=== PATIENT | female | born 1990 | race Caucasian/White ===

== ENCOUNTER 2016-09-28 17:06 | Emergency (ER) | payer OTHER ==
[2016-09-28 18:33] LABS: HEMOGLOBIN 11.1 gm/dl (12.3-15.3); RED BLOOD COUNT 3.49 M/UL (4.00-5.10); WHITE BLOOD COUNT 11.7 K/UL (4.5-11.0)
[2016-09-30] MEDS ORDERED: PROGRAF1 MG PO (07:14)
[2016-09-30] MEDS ORDERED: COMPAZINE10 MG PO (07:15)
[2016-09-30] MEDS ORDERED: NYSTATIN100000 UNI PO (07:15)
[2016-09-30] MEDS ORDERED: BENADRYL 25MG C25 MG PO (07:16)
[2016-09-30] MEDS ORDERED: ASPIR 8181 MG PO (07:17)
[2016-09-30] MEDS ORDERED: PREDNISONE10 MG PO (07:17)
[2016-09-30] MEDS ORDERED: CELEXA10 MG PO (07:18)
[2016-09-30] MEDS ORDERED: WARFARIN SODIU7.5 MG PO (07:18)
[2016-09-30] MEDS ORDERED: PROTONIX 40 MG40 M1 PO (07:19)
[2016-09-30] MEDS ORDERED: COQ-10100 MG PO (07:19)
[2016-09-30] MEDS ORDERED: PHENERGAN 25 MG25 M1 PO (07:20)
[2016-09-30] MEDS ORDERED: NORCO 10-325 T1 EACH PO (10:39)
[2016-12-24] MEDS ORDERED: CELEXA10 MG PO (09:39)
[2016-12-24] MEDS ORDERED: PHENERGAN 25 MG25 M1 PO (09:40)
[2016-12-24] MEDS ORDERED: NORCO 7.5-3251 EACH PO (13:01)
[2017-01-05] MEDS ORDERED: MAGNESIUM/PROTEIN PO (07:52)
[2017-01-05] MEDS ORDERED: COQ-10100 MG PO (07:53)
[2017-01-05] MEDS ORDERED: PROTONIX40 MG PO (07:53)
[2017-01-05] MEDS ORDERED: PREDNISONE10 MG PO (07:54)
[2017-01-05] MEDS ORDERED: WARFARIN SODIUM3 MG PO (07:55)
[2017-01-05] MEDS ORDERED: MYCOSTATIN CREA15 GM EXT (07:56)
[2017-01-05] MEDS ORDERED: TACROLIMUS1 MG PO (07:56)
[2017-01-05] MEDS ORDERED: MULTI-DAY VITA1 EACH PO (07:57)
[2017-01-05] MEDS ORDERED: NORCO 7.5-3251 EACH PO (11:25)
== END 2016-09-28 19:23 | disposition home or self-care (01) ==
LOC: ER1 17:06
PROVIDERS: Emergency Medicine
DX: S61.012A Laceration without foreign body of left thumb without damage to nail, initial encounter (principal); S56.322A Laceration of extensor or abductor muscles, fascia and tendons of left thumb at forearm level, initial encounter; Z86.718 Personal history of other venous thrombosis and embolism; Z79.01 Long term (current) use of anticoagulants; W45.8XXA Other foreign body or object entering through skin, initial encounter; Y93.89 Activity, other specified; Y92.009 Unspecified place in unspecified non-institutional (private) residence as the place of occurrence of the external cause; Z91.041 Radiographic dye allergy status; Z23 Encounter for immunization
CPT/HCPCS: 12001; 36415; 73140; 85025; 85610; 90715; 99283

== ENCOUNTER → 2016-09-30 | Day surgery (SDC) | payer OTHER ==
[~2016-09-30] VITALS: Ht 157.5 cm; Wt 56.7 kg
[~2016-09-30] MED LIST: ASPIR 8181 MG PO; BENADRYL 25MG C25 MG PO; CELEXA10 MG PO; COMPAZINE10 MG PO; COQ-10100 MG PO; MAGNESIUM/PROTEIN PO; MULTI-DAY VITA1 EACH PO; MYCOSTATIN CREA15 GM EXT; NORCO 10-325 T1 EACH PO; NORCO 7.5-3251 EACH PO; NYSTATIN100000 UNI PO; PHENERGAN 25 MG25 M1 PO; PREDNISONE10 MG PO; PROGRAF1 MG PO; PROTONIX 40 MG40 M1 PO; PROTONIX40 MG PO; TACROLIMUS1 MG PO; WARFARIN SODIU7.5 MG PO; WARFARIN SODIUM3 MG PO
== END | disposition home or self-care (01) ==
LOC: OR 06:02
PROVIDERS: Orthopaedic Surgery
PROC: 0LQ80ZZ Repair Left Hand Tendon, Open Approach (ICD-10-PCS; principal; 2016-09-30 08:15)
DX: S66.212A Strain of extensor muscle, fascia and tendon of left thumb at wrist and hand level, initial encounter (principal); K21.9 Gastro-esophageal reflux disease without esophagitis; Z91.041 Radiographic dye allergy status; Z88.8 Allergy status to other drugs, medicaments and biological substances; Z79.899 Other long term (current) drug therapy; Z79.82 Long term (current) use of aspirin; Z87.19 Personal history of other diseases of the digestive system; W34.00XA Accidental discharge from unspecified firearms or gun, initial encounter; Z90.49 Acquired absence of other specified parts of digestive tract
CPT/HCPCS: 84703; J0690; J2250; J2405; J2550; J3010; J3370; J7030; J7050; J7070; J7120

== ENCOUNTER 2016-11-04 11:26 | Emergency (ER) | payer OTHER ==
[~2016-11-04 11:26] MED LIST changes: -MAGNESIUM/PROTEIN PO; -MULTI-DAY VITA1 EACH PO; -MYCOSTATIN CREA15 GM EXT; -NORCO 7.5-3251 EACH PO; -PROTONIX40 MG PO; -TACROLIMUS1 MG PO; -WARFARIN SODIUM3 MG PO
[2016-11-04 13:36] LABS: HEMOGLOBIN 12.1 gm/dl (12.3-15.3); RED BLOOD COUNT 3.89 M/UL (4.00-5.10); WHITE BLOOD COUNT 12.9 K/UL (4.5-11.0)
[2016-11-04 13:56] LABS: BUN/CREATININE RATIO 25 (0-10)
[2016-12-24] MEDS ORDERED: CELEXA10 MG PO (09:39)
[2016-12-24] MEDS ORDERED: PHENERGAN 25 MG25 M1 PO (09:40)
[2016-12-24] MEDS ORDERED: NORCO 7.5-3251 EACH PO (13:01)
[2017-01-05] MEDS ORDERED: MAGNESIUM/PROTEIN PO (07:52)
[2017-01-05] MEDS ORDERED: PROTONIX40 MG PO (07:53)
[2017-01-05] MEDS ORDERED: COQ-10100 MG PO (07:53)
[2017-01-05] MEDS ORDERED: PREDNISONE10 MG PO (07:54)
[2017-01-05] MEDS ORDERED: WARFARIN SODIUM3 MG PO (07:55)
[2017-01-05] MEDS ORDERED: MYCOSTATIN CREA15 GM EXT (07:56)
[2017-01-05] MEDS ORDERED: TACROLIMUS1 MG PO (07:56)
[2017-01-05] MEDS ORDERED: MULTI-DAY VITA1 EACH PO (07:57)
[2017-01-05] MEDS ORDERED: NORCO 7.5-3251 EACH PO (11:25)
== END 2016-11-04 15:55 | disposition home or self-care (01) ==
LOC: ER1 11:26
PROVIDERS: Physician Assistant
DX: N20.1 Calculus of ureter (principal); N39.0 Urinary tract infection, site not specified; K21.9 Gastro-esophageal reflux disease without esophagitis; Z91.041 Radiographic dye allergy status; Z79.01 Long term (current) use of anticoagulants; Z79.82 Long term (current) use of aspirin; Z79.899 Other long term (current) drug therapy
CPT/HCPCS: 36415; 80053; 81001; 84703; 85025; 87086; 96374; 96375; 99284; J0696; J1885; J2270; J2405; J2550; J7030; J7050

== ENCOUNTER → 2020-07-06 | Outpatient (CLI) | payer OTHER ==
[~2020-07-06] MED LIST changes: +CEFUROXIME250 MG PO; +DOXYCYCLINE HY100 MG PO; +GENTAMICIN; +LEVAQUIN500 MG PO; +MAGNESIUM400 MG PO; +MULTI-DAY VITA1 EACH PO; +MYCOSTATIN100000 UTS PO; +NORCO 7.5-3251 EACH PO; +OMNICEF 300 MG300 MG PO; +ONDANSETRON ODT4 MG SL; +PERCOCET 5/325 T1 EA PO; +PHENERGAN 12.12.5 M1 PO; +PREDNISONE5 MG PO; +PROTONIX 20 MG20 MG PO; +PROTONIX40 MG PO; +TACROLIMUS1 MG PO; +VITAMIN D31000 UNI1 PO; +WARFARIN SODIUM3 MG PO
== END ==
LOC: KOH-I 14:00
DX: N17.9 Acute kidney failure, unspecified (principal); N28.89 Other specified disorders of kidney and ureter
CPT/HCPCS: 76775

== ENCOUNTER 2020-08-28 17:01 | Emergency (ER) | payer OTHER ==
[~2020-08-28 17:01] MED LIST changes: -DOXYCYCLINE HY100 MG PO; -ONDANSETRON ODT4 MG SL
[2020-08-28 18:49] LABS: HEMOGLOBIN 11.3 gm/dl (12.3-15.3); RED BLOOD COUNT 3.63 M/UL (4.00-5.10)
[2020-08-28 19:07] LABS: WHITE BLOOD COUNT 18.4 K/UL (4.5-11.0)
[2020-08-28] MEDS ORDERED: PERCOCET 5/325 T1 EA PO (21:40)
[2020-08-28] MEDS ORDERED: DOXYCYCLINE HY100 MG PO (21:43)
[2020-08-28] MEDS ORDERED: ONDANSETRON ODT4 MG SL (21:43)
== END 2020-08-28 22:04 | disposition home or self-care (01) ==
LOC: ER1 17:01
PROVIDERS: Physician Assistant
DX: N12 Tubulo-interstitial nephritis, not specified as acute or chronic (principal); E87.6 Hypokalemia; Z79.01 Long term (current) use of anticoagulants; Z79.899 Other long term (current) drug therapy; Z91.041 Radiographic dye allergy status
CPT/HCPCS: 80053; 81001; 83605; 83690; 84703; 85025; 87040; 87077; 87086; 87186; 96374; 96375; 96376; 99284; J0696; J2270; J2405

== ENCOUNTER → 2020-10-22 | Outpatient (CLI) | payer OTHER ==
[~2020-10-22] MED LIST changes: +DOXYCYCLINE HY100 MG PO; +ONDANSETRON ODT4 MG SL
[2020-10-22 16:00] LABS: HEMOGLOBIN 13.1 gm/dl (12.3-15.3); RED BLOOD COUNT 4.19 M/UL (4.00-5.10); WHITE BLOOD COUNT 12.1 K/UL (4.5-11.0)
[2020-10-22 16:17] LABS: BUN/CREATININE RATIO 17 (0-10); GAMMA GLUTAMYL TRANSPEPTIDASE 22 U/L (7-64)
[2020-10-23 14:11] LABS: TACROLIMUS BY IMMUNOASSAY 16.1 ng/mL (2.0-20.0)
== END ==
LOC: PHH 14:17
DX: Z48.298 Encounter for aftercare following other organ transplant (principal); Z94.82 Intestine transplant status
CPT/HCPCS: 80053; 80061; 80197; 82150; 82248; 82977; 83690; 83735; 84100; 84134; 85025

== ENCOUNTER → 2020-10-29 | Outpatient (CLI) | payer OTHER ==
[2020-10-29 14:10] LABS: HEMOGLOBIN 12.3 gm/dl (12.3-15.3); RED BLOOD COUNT 3.93 M/UL (4.00-5.10); WHITE BLOOD COUNT 15.6 K/UL (4.5-11.0)
[2020-10-31 11:12] LABS: TACROLIMUS BY IMMUNOASSAY 12.2 ng/mL (2.0-20.0)
== END ==
LOC: LBRF 13:42
DX: Z94.82 Intestine transplant status (principal)
CPT/HCPCS: 80053; 80061; 80197; 82150; 82248; 82977; 83690; 83735; 84100; 84134; 85025

== ENCOUNTER → 2021-03-04 | Outpatient (CLI) | payer OTHER ==
[2021-03-04 15:30] LABS: HEMOGLOBIN 11.3 gm/dl (12.3-15.3); RED BLOOD COUNT 3.73 M/UL (4.00-5.10); WHITE BLOOD COUNT 13.1 K/UL (4.5-11.0)
[2021-03-04 15:42] LABS: BUN/CREATININE RATIO 16 (0-10); GAMMA GLUTAMYL TRANSPEPTIDASE 46 U/L (7-64)
[2021-03-05 12:14] LABS: TACROLIMUS BY IMMUNOASSAY 15.9 ng/mL (2.0-20.0)
== END ==
LOC: LBRF 14:06
DX: K91.2 Postsurgical malabsorption, not elsewhere classified (principal)
CPT/HCPCS: 80053; 80061; 80197; 82150; 82248; 82977; 83690; 84134; 85025

== ENCOUNTER → 2021-04-08 | Outpatient (CLI) | payer OTHER ==
[2021-04-10 14:14] LABS: TACROLIMUS BY IMMUNOASSAY 11.4 ng/mL (2.0-20.0)
== END ==
LOC: PHH 17:20
DX: Z94.82 Intestine transplant status (principal)
CPT/HCPCS: 80197; 84134

== ENCOUNTER 2021-05-06 02:02 | Inpatient (IN) | payer OTHER ==
[~2021-05-06] VITALS: Ht 157.5 cm; Wt 44.0 kg
[~2021-05-06 02:02] MED LIST changes: -PREDNISONE5 MG PO; -VITAMIN D31000 UNI1 PO
[2021-05-06 02:35] LABS: HEMOGLOBIN 11.7 gm/dl (12.3-15.3); RED BLOOD COUNT 3.91 M/UL (4.00-5.10); WHITE BLOOD COUNT 22.7 K/UL (4.5-11.0)
[2021-05-06] MEDS ORDERED: COQ-10100 MG PO (07:53)
[2021-05-06] MEDS ORDERED: PREDNISONE5 MG PO (07:54)
[2021-05-06] MEDS ORDERED: PROGRAF1 MG PO (12:19)
--- NOTE | 2021-05-06 16:54 | NUR ---
PATIENT HAS LOW BLOOD PRESSURE AND SAYS SHE FEELS WEAK AND DOESN'T FEEL GOOD. DR. PAUL NOTIFIED AND ORDERED 1000CC BOLUS OF NORMAL SALINE
[2021-05-06] MEDS ORDERED: VITAMIN D3125 MCG PO (21:58)
[2021-05-07 06:29] LABS: HEMOGLOBIN 8.8 gm/dl (12.3-15.3); RED BLOOD COUNT 3.03 M/UL (4.00-5.10); WHITE BLOOD COUNT 59.2 K/UL (4.5-11.0)
--- NOTE | 2021-05-08 01:29 | NUR ---
OFFERED ENSURE DURING ASSESMENT OF PT APPROX 1939, PT REFUSED SAYS SHE IS LACTOUSE INTOLERATE AND THEY MAKE HER VOMIT.
[2021-05-08 06:30] LABS: HEMOGLOBIN 8.9 gm/dl (12.3-15.3); RED BLOOD COUNT 3.17 M/UL (4.00-5.10)
[2021-05-08 06:46] LABS: WHITE BLOOD COUNT 49.7 K/UL (4.5-11.0)
[2021-05-09 07:26] LABS: RED BLOOD COUNT 3.15 M/UL (4.00-5.10)
[2021-05-09 07:42] LABS: WHITE BLOOD COUNT 25.5 K/UL (4.5-11.0)
[2021-05-09] MEDS ORDERED: ROCEPHIN IM/I2000 MG IV (10:24)
== END 2021-05-09 12:59 | disposition home health service (06) | DRG 698 ==
LOC: ER1 02:02 → CDU 05:06 → CCU 05:06 → ZOBSOF 05-07 15:58 → M/S 05-07 17:54
PROVIDERS: Emergency Medicine; Internal Medicine; ADMIT Internal Medicine Infectious Disease
DX: T83.518A Infection and inflammatory reaction due to other urinary catheter, initial encounter (principal); A41.51 Sepsis due to Escherichia coli [E. coli]; Z20.822 Contact with and (suspected) exposure to COVID-19; R65.21 Severe sepsis with septic shock; N17.9 Acute kidney failure, unspecified; E87.2 Acidosis; Z94.83 Pancreas transplant status; D84.9 Immunodeficiency, unspecified; N10 Acute pyelonephritis; N30.00 Acute cystitis without hematuria; T38.0X5A Adverse effect of glucocorticoids and synthetic analogues, initial encounter; N18.30 Chronic kidney disease, stage 3 unspecified; K44.9 Diaphragmatic hernia without obstruction or gangrene; I95.9 Hypotension, unspecified; E86.0 Dehydration; K31.84 Gastroparesis; L94.8 Other specified localized connective tissue disorders; Y84.6 Urinary catheterization as the cause of abnormal reaction of the patient, or of later complication, without mention of misadventure at the time of the procedure; I12.9 Hypertensive chronic kidney disease with stage 1 through stage 4 chronic kidney disease, or unspecified chronic kidney disease; E83.42 Hypomagnesemia; Z90.81 Acquired absence of spleen; Z94.89 Other transplanted organ and tissue status; Z87.440 Personal history of urinary (tract) infections; Z90.49 Acquired absence of other specified parts of digestive tract; Z88.1 Allergy status to other antibiotic agents; Z91.041 Radiographic dye allergy status; Z83.2 Family history of diseases of the blood and blood-forming organs and certain disorders involving the immune mechanism
CPT/HCPCS: 36415; 80048; 80053; 81001; 82962; 83605; 83690; 83735; 84100; 84703; 85025; 87040; 87077; 87086; 87186; 96365; 96375; 99285; J0696; J2185; J2270; J2405; J2550; J3475; J7030; J7507; U0002

== ENCOUNTER → 2021-07-08 | Outpatient (CLI) | payer OTHER ==
[~2021-07-08] MED LIST changes: +PREDNISONE5 MG PO; +ROCEPHIN IM/I2000 MG IV; +VITAMIN D3125 MCG PO
[2021-07-08 15:25] LABS: HEMOGLOBIN 10.5 gm/dl (12.3-15.3); RED BLOOD COUNT 3.95 M/UL (4.00-5.10); WHITE BLOOD COUNT 9.9 K/UL (4.5-11.0)
[2021-07-08 15:59] LABS: BUN/CREATININE RATIO 34 (0-10); GAMMA GLUTAMYL TRANSPEPTIDASE 45 U/L (7-64)
[2021-07-09 08:13] LABS: MAGNESIUM 1.6 mg/dL (1.6-2.3)
== END ==
LOC: LBRF 14:56
DX: Z48.298 Encounter for aftercare following other organ transplant (principal); Z94.82 Intestine transplant status
CPT/HCPCS: 80053; 80197; 82150; 82465; 82550; 82977; 83690; 83735; 84100; 84134; 84478; 85027; 87497; 87799

== ENCOUNTER 2021-07-15 07:27 | Emergency (ER) | payer OTHER ==
[~2021-07-15] VITALS: Ht 157.5 cm; Wt 47.6 kg
[2021-07-15 09:03] LABS: HEMOGLOBIN 11.9 gm/dl (12.3-15.3); RED BLOOD COUNT 4.17 M/UL (4.00-5.10)
[2021-07-15 09:35] LABS: BUN/CREATININE RATIO 18 (0-10)
[2021-07-15 09:55] LABS: WHITE BLOOD COUNT 66.1 K/UL (4.5-11.0)
== END 2021-07-15 19:45 | disposition short-term general hospital (02) ==
LOC: ER1 07:27
PROVIDERS: Emergency Medicine
DX: T80.211A Bloodstream infection due to central venous catheter, initial encounter (principal); A41.9 Sepsis, unspecified organism; R65.21 Severe sepsis with septic shock; N39.0 Urinary tract infection, site not specified; Z20.822 Contact with and (suspected) exposure to COVID-19; D72.829 Elevated white blood cell count, unspecified; Z94.83 Pancreas transplant status; Z94.82 Intestine transplant status; R74.01 Elevation of levels of liver transaminase levels; N17.9 Acute kidney failure, unspecified; Z87.440 Personal history of urinary (tract) infections
CPT/HCPCS: 51701; 71045; 80053; 81001; 82550; 82553; 83605; 83690; 83874; 84484; 84703; 85007; 85027; 87040; 87086; 93005; 96374; 96375; 99285; J0692; J1170; J2185; J2270; J2405; J2550; J3370; J7030; U0002

== ENCOUNTER → 2021-07-30 | Outpatient (CLI) | payer OTHER ==
[2021-07-30 16:25] LABS: HEMOGLOBIN 9.6 gm/dl (12.3-15.3); RED BLOOD COUNT 3.42 M/UL (4.00-5.10); WHITE BLOOD COUNT 7.4 K/UL (4.5-11.0)
[2021-07-30 16:47] LABS: BUN/CREATININE RATIO 37 (0-10); GAMMA GLUTAMYL TRANSPEPTIDASE 50 U/L (7-64)
[2021-07-31 15:15] LABS: TACROLIMUS BY IMMUNOASSAY 17.7 ng/mL (2.0-20.0)
== END ==
LOC: LAB 15:51
PROVIDERS: Transplant Surgery
DX: R60.0 Localized edema (principal); M32.10 Systemic lupus erythematosus, organ or system involvement unspecified; R62.7 Adult failure to thrive
CPT/HCPCS: 80053; 80197; 82150; 82465; 82550; 82977; 83690; 83735; 84100; 84134; 84478; 85025

== ENCOUNTER → 2021-10-07 | Outpatient (CLI) | payer OTHER ==
[2021-10-07 14:58] LABS: HEMOGLOBIN 10.8 gm/dl (12.3-15.3); RED BLOOD COUNT 3.73 M/UL (4.00-5.10); WHITE BLOOD COUNT 8.1 K/UL (4.5-11.0)
[2021-10-08 14:14] LABS: TACROLIMUS BY IMMUNOASSAY 3.2 ng/mL (2.0-20.0)
== END ==
LOC: LBRF 13:51
PROVIDERS: Transplant Surgery
DX: N15.9 Renal tubulo-interstitial disease, unspecified (principal)
CPT/HCPCS: 80053; 80197; 82150; 82247; 82248; 82465; 82550; 82977; 83690; 83735; 84134; 84478; 85025

== ENCOUNTER 2021-11-04 22:54 | Emergency (ER) | payer OTHER ==
[2021-11-04 23:41] LABS: HEMOGLOBIN 10.2 gm/dl (12.3-15.3); RED BLOOD COUNT 3.57 M/UL (4.00-5.10)
[2021-11-04 23:42] LABS: WHITE BLOOD COUNT 5.1 K/UL (4.5-11.0)
[2021-11-05 08:22] LABS: CANDIDA ALBICANS Not Detected (Negative); CANDIDA KRUSEI Not Detected (Negative); CANDIDA TROPICALIS Not Detected (Negative); HAEMOPHILUS INFLUENZAE Not Detected (Negative); KLEBSIELLA OXYTOCA Not Detected (Negative); KLEBSIELLA PNEUMONIAE Not Detected (Negative); KPC-CARBAPENEM-RESISTANCE GENE Not Detected (Negative); PROTEUS Not Detected (Negative); PSEUDOMONAS AERUGINOSA Not Detected (Negative); SERRATIA MARCESANS Not Detected (Negative); STAPHYLOCOCCUS Not Detected (Negative); STAPHYLOCOCCUS AUREUS Not Detected (Negative); STREP AGALACTIAE (GROUP B) Not Detected (Negative); STREP PYOGENES (GROUP A) Not Detected (Negative); STREPTOCOCCUS Not Detected (Negative); vanA/B (VANCOMYCIN RESIST GENE Not Detected (Negative)
[2021-11-05 09:41] LABS: ESCHERICHIA COLI DETECTED (Negative)
== END 2021-11-05 10:18 | disposition other institution (70) ==
LOC: ER1 22:54
PROVIDERS: Emergency Medicine; Physician Assistant; Student in an Organized Health Care Education/Training Program
DX: K72.90 Hepatic failure, unspecified without coma (principal); Z88.1 Allergy status to other antibiotic agents; Z91.041 Radiographic dye allergy status; Z20.822 Contact with and (suspected) exposure to COVID-19
CPT/HCPCS: 80053; 80307; 83605; 85025; 87040; 87077; 87150; 87186; 96374; 96375; 96376; 99285; J2270; J2405; J2550; J7030; U0002